=== PATIENT | female | born 2000 | race Caucasian/White ===

== ENCOUNTER 2022-02-09 23:41 | Emergency (ER) | payer MEDICAID ==
[~2022-02-09] VITALS: Ht 162.6 cm; Wt 68.0 kg
[2022-02-10] MEDS ORDERED: METOCLOPRAMIDE HCL 10MG TABLET PO ONE (01:30)
[2022-02-10] MEDS ORDERED: ALBUTEROL 6.7GM HFA INHALER ORI ONE (01:30)
[2022-02-10] MEDS ORDERED: IBUPROFEN 600MG TABLET PO ONE (01:30)
[2022-02-10] MEDS ORDERED: IBUP-2029 MT (02:40)
[2022-02-10] MEDS ORDERED: ALBU6.7H9 INH (02:40)
[2022-02-10] MEDS ORDERED: MED4 MT (02:40)
[2022-02-10 04:01] VITALS: BP 125/77
== END 2022-02-10 04:01 | disposition home or self-care (01) ==
LOC: ER 23:41
DX: U07.1 COVID-19 (principal)
CPT/HCPCS: 81025; 94640; 99283; J8597; Z7610